=== PATIENT | male | born 1965 | race Caucasian/White ===

== ENCOUNTER 2018-07-12 04:02 | Emergency (ER) | payer OTHER ==
[~2018-07-12] VITALS: Ht 175.3 cm; Wt 104.5 kg
[2018-07-12 04:31] VITALS: BP 198/118
[2018-07-21] MEDS ORDERED: AMLO10TA PO (21:48)
== END 2018-07-12 04:53 | disposition left against medical advice (07) ==
LOC: M ED 04:02
DX: R04.0 Epistaxis (principal); Z53.21 Procedure and treatment not carried out due to patient leaving prior to being seen by health care provider

== ENCOUNTER 2018-08-26 18:41 | Emergency (ER) | payer MEDICAID, OTHER ==
[~2018-08-26] VITALS: Ht 175.3 cm; Wt 130.4 kg
[~2018-08-26 18:41] MED LIST changes: -LISI10TA4; -NORCOTAB PO; -PENI500T PO
[2018-08-26] MEDS ORDERED: LISI10TA4 (18:46)
[2018-08-26] MEDS ORDERED: NORCOTAB PO (21:03)
[2018-08-26] MEDS ORDERED: PENI500T PO (21:03)
[2018-08-26 21:08] VITALS: BP 142/82
[2018-08-26] MEDS ORDERED: NORCO 5/325MG TABLET (BULK FOR ED) PO ONE (21:15)
[2018-08-26] MEDS ORDERED: PENICILLIN V POTASSIUM 500 MG TAB PO ONE (21:15)
== END 2018-08-26 21:22 | disposition home or self-care (01) ==
LOC: M ED 18:41
DX: K04.7 Periapical abscess without sinus (principal); K08.89 Other specified disorders of teeth and supporting structures; I10 Essential (primary) hypertension; Z79.899 Other long term (current) drug therapy

== ENCOUNTER → 2018-08-26 | Outpatient (REF) | payer OTHER, MEDICAID ==
[~2018-08-26] MED LIST: AMLO10TA PO; LISI10TA4; NORCOTAB PO; PENI500T PO
[2018-08-26 16:00] LABS: ALBUMIN 4.2 GM/DL (3.2-5.2); ALT/SGPT 24 U/L (12-78); BILIRUBIN,TOTAL 0.4 MG/DL (0.2-1.0); BLOOD UREA NITROGEN 21 MG/DL (7-18); CALCIUM LEVEL 9.2 MG/DL (8.5-10.1); CARBON DIOXIDE LEVEL 27 MEQ/L (21-32); CHLORIDE LEVEL 105 MEQ/L (98-107); CHOLESTEROL LEVEL 182 MG/DL (<200); CHOLESTEROL RISK RATIO 5.687 (<5); CREATININE FOR GFR 1.16 MG/DL (0.70-1.30); FREE T4 1.05 NG/DL (0.76-1.46); GLOMERULAR FILTRATION RATE > 60.0 (>56); GLUCOSE, FASTING 96 MG/DL (70-100); HDL CHOLESTEROL 32 MG/DL (>40); LDL CHOLESTEROL 99 MG/DL (<100); NON-HDL-C 150 MG/DL; POTASSIUM SERUM 4.5 MEQ/L (3.5-5.1); SODIUM LEVEL 139 MEQ/L (136-145); TOTAL PROTEIN 7.3 GM/DL (6.4-8.2); TRIGLYCERIDES LEVEL 255 MG/DL (<150)
[2018-08-26 16:13] LABS: HEMOGLOBIN A1c 6.6 %
== END ==
LOC: M SFHCPLAZ 13:08
PROVIDERS: ATTEND Physician Assistant Medical
DX: Z13.220 Encounter for screening for lipoid disorders (principal); Z12.5 Encounter for screening for malignant neoplasm of prostate; Z68.41 Body mass index [BMI] 40.0-44.9, adult

== ENCOUNTER 2020-04-12 18:09 | Emergency (ER) | payer OTHER ==
[~2020-04-12] VITALS: Ht 175.3 cm; Wt 138.8 kg
[2020-04-12 18:09] VITALS: BP 146/83
[~2020-04-12 18:09] MED LIST changes: +CARV6.25 PO; +HYDR-3715 PO; +LISI10TA4; +LISI40TA PO; +METF500T13 PO; +PENI500T PO
--- NOTE | 2020-04-12 21:33 | REPVR ---
PROCEDURE INFORMATION: Exam: US Duplex Right Lower Extremity Veins, Limited Exam date and time: 04/12/2020 9:06 PM Age: 54 years old Clinical indication: Edema, localized; Lower extremity, right; Additional info: Swelling TECHNIQUE: Imaging protocol: Real-time Duplex ultrasound of the Right Lower Extremity with 2-D zavala scale, color Doppler flow and spectral waveform analysis with image documentation. Limited exam was focused on the right lower extremity veins. COMPARISON: No relevant prior studies available. FINDINGS: Right deep veins: Unremarkable. The common femoral, femoral and popliteal veins are patent without thrombus. Normal Doppler waveforms. Normal compressibility and/or augmentation response. Right superficial veins: Unremarkable. Saphenofemoral junction is patent without thrombus. Soft tissues: Unremarkable. IMPRESSION: No sonographic evidence of deep vein thrombosis. Electronically signed by: Luis Arthur On 04/12/2020 21:32:46 PM
[2020-04-12 21:40] LABS: BASO # 0.1 10^3/uL (0.0-0.2); BASO % 0.7 % (0.0-1.0); EOS % 0.2 % (0.0-3.0); HEMATOCRIT 42.2 % (42.0-52.0); HEMOGLOBIN 13.8 g/dl (13.5-17.5); LYMPH # 1.4 10^3/uL (1.5-5.0); LYMPH % 15.1 % (24.0-44.0); MEAN CORPUSCULAR HEMOGLOBIN 29.2 pg (27.0-33.0); MEAN CORPUSCULAR HGB CONC 32.7 g/dl (32.0-36.5); MEAN CORPUSCULAR VOLUME 89.2 fl (80.0-96.0); MONO # 0.8 10^3/uL (0.0-0.8); MONO % 8.9 % (0.0-5.0); NEUTROPHILS # 6.7 10^3/uL (1.5-8.5); NEUTROPHILS % 74.3 % (36.0-66.0); PLATELET COUNT, AUTOMATED 319 10^3/uL (150-450); RED BLOOD COUNT 4.73 10^6/uL (4.30-6.10)
[2020-04-12 22:13] LABS: BLOOD UREA NITROGEN 22 MG/DL (7-18); CALCIUM LEVEL 8.9 MG/DL (8.5-10.1); CARBON DIOXIDE LEVEL 27 MEQ/L (21-32); CHLORIDE LEVEL 106 MEQ/L (98-107); CREATININE FOR GFR 1.26 MG/DL (0.70-1.30); GLOMERULAR FILTRATION RATE > 60.0 (>56); GLUCOSE, FASTING 110 MG/DL (70-100); NT-PRO BNP 27 PG/ML (<125); POTASSIUM SERUM 4.3 MEQ/L (3.5-5.1); SODIUM LEVEL 137 MEQ/L (136-145)
== END 2020-04-12 22:26 | disposition home or self-care (01) ==
LOC: M ED 18:09
DX: R22.41 Localized swelling, mass and lump, right lower limb (principal); E11.9 Type 2 diabetes mellitus without complications; I10 Essential (primary) hypertension; Z79.899 Other long term (current) drug therapy; Z79.84 Long term (current) use of oral hypoglycemic drugs

== ENCOUNTER → 2021-01-23 | Outpatient (CLI) | payer OTHER ==
[~2021-01-23] MED LIST changes: +LISI10TA22; -LISI10TA4; -LISI40TA PO; +LISI40TA4 PO
--- NOTE | 2021-01-23 15:58 | REP ---
INDICATION: PAIN COMPARISON: None. TECHNIQUE: Internal rotation, external rotation, and Y view. FINDINGS: Cortical irregularity and spurring at the acromioclavicular joint and distal aspect of the acromion is noted along with decreased subacromial space measuring up to 6 mm. No periarticular calcifications or loose bodies are identified. The glenohumeral joint appears otherwise normal. There is no evidence for acute fracture or dislocation. 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
== END ==
LOC: M WUC 15:23
PROVIDERS: ATTEND Physician Assistant Medical
DX: M19.011 Primary osteoarthritis, right shoulder (principal)